=== PATIENT | female | born 1960 | race Caucasian/White ===

== ENCOUNTER 2021-08-16 05:45 | Day surgery (SDC) | payer MEDICARE, MEDICAID ==
[2021-08-14 10:58] LABS: COVID AG,FIA SOURCE NASAL SWAB
[~2021-08-16] VITALS: Ht 156.2 cm; Wt 81.3 kg
[~2021-08-16 05:45] MED LIST: AMIT25TA10 PO; ASPI-1450 PO; LORA10TA7 PO; LOSA-381 PO; MECL-160 PO; MONT-35 PO; NAPR-1025 PO
[2021-08-16] MEDS ORDERED: ALBUTEROL SULFATE 2.5 MG/0.5 ML NEB SOLUTION NEB ONE (05:46)
[2021-08-16] MEDS ORDERED: BENZOCAINE 20% 50 MCG/SPRAY 57 GM TP ONE (05:46)
[2021-08-16] MEDS ORDERED: LIDOCAINE 2% 30 ML JELLY TP ONE (05:46)
[2021-08-16] MEDS ORDERED: SODIUM CHLORIDE 0.9% 1,000 ML IV ONE (06:30)
[2021-08-16] MEDS ORDERED: SODIUM CHLORIDE 0.9% 1,000 ML ONE (07:08)
[2021-08-16] MEDS ORDERED: MIDAZOLAM HCL 5 MG/ML VIAL ONE (07:53)
[2021-08-16] MEDS ORDERED: FentaNYL CITRATE PF 100 MCG/2 ML VIAL ONE (07:53)
[2021-08-16] MEDS ORDERED: MethylPREDNISolone SOD SUCC 125 MG/2 ML VIAL IVP ONE (09:00)
[2021-08-16] MEDS ORDERED: MethylPREDNISolone SOD SUCC 125 MG/2 ML VIAL ONE (09:28)
[2021-08-16] MEDS ORDERED: OXYGEN THERAPY IH SCH (20:00)
== END 2021-08-16 11:20 | disposition home or self-care (01) ==
LOC: SURGERY 05:45
PROVIDERS: ATTEND Internal Medicine Critical Care Medicine
DX: J38.4 Edema of larynx (principal); B37.0 Candidal stomatitis; I10 Essential (primary) hypertension; M19.90 Unspecified osteoarthritis, unspecified site; G47.30 Sleep apnea, unspecified; E11.9 Type 2 diabetes mellitus without complications; Z79.899 Other long term (current) drug therapy; Z98.890 Other specified postprocedural states; Z79.82 Long term (current) use of aspirin
CPT/HCPCS: 31623; 31624; 71045; 87015; 87070; 87101; 87206; 87220; 87426; 88112; 88184; 88185; 88312; C9803; J2250; J2930; J3010; J7030; J7613

== ENCOUNTER 2024-07-08 07:15 | Day surgery (SDC) | payer OTHER ==
[~2024-07-08] VITALS: Ht 154.9 cm; Wt 78.1 kg
[~2024-07-08 07:15] MED LIST changes: +ALBU18HF12 IH; -AMIT25TA10 PO; +BACL20TA PO; +BUDE10.7 IH; +CETI10TA58 PO; +DICL100G60 TP; +FAMO20 PO; +FLUT16H NASAL; +GABA-1181 PO; -LORA10TA7 PO; -MECL-160 PO; -NAPR-1025 PO; +SODIUM CHLORIDE 0.9% 1,000 ML IV ONE; +SUCR1TAB2 PO
[2024-07-08] MEDS ORDERED: FentaNYL CITRATE PF 100 MCG/2 ML VIAL ONE (07:27)
[2024-07-08] MEDS ORDERED: MIDAZOLAM HCL 2 MG/2 ML VIAL ONE (07:27)
[2024-07-08 08:56] LABS: GLUCOMETER DEV NAME(LOC) SDS.; GLUCOSE,POINT OF CARE 125 MG/DL (70-110)
[2024-07-08 09:39] VITALS: PULSE 60; RESP 20; O2SAT 99
[2024-07-08] MEDS ORDERED: MethylPREDNISolone SOD SUCC 125 MG/2 ML VIAL ONE (09:46)
[2024-07-08] MEDS: MethylPREDNISolone SOD SUCC 125 MG/2 ML VIAL IVP ONE (10:25)
[2024-07-08] MEDS ORDERED: LIDOCAINE 4% 50 ML SOLUTION ONE (12:00)
[2024-07-08] MEDS ORDERED: LIDOCAINE 2% 11 ML JELLY ONE (12:00)
[2024-07-08] MEDS ORDERED: BENZOCAINE 20% 50 MCG/SPRAY 57 GM ONE (12:00)
== END 2024-07-08 12:10 | disposition home or self-care (01) ==
LOC: SURGERY 07:15
PROVIDERS: ATTEND Internal Medicine Critical Care Medicine
DX: J38.4 Edema of larynx (principal); B37.0 Candidal stomatitis; I10 Essential (primary) hypertension; E11.9 Type 2 diabetes mellitus without complications; M19.90 Unspecified osteoarthritis, unspecified site; Z98.890 Other specified postprocedural states; Z98.49 Cataract extraction status, unspecified eye
CPT/HCPCS: 31623; 82962; 87206; 87101; 87220; 87070; 88108; 31624; 71045; 87015; J3010; J2250; J2919; Z7610